=== PATIENT | male | born 1950 | race Caucasian/White ===

== ENCOUNTER 2017-01-22 20:11 | Emergency (ER) | payer MEDICARE ==
[~2017-01-22 20:11] MED LIST: COUMADIN1 MG PO; MULTIPLE VITAMIN PO; TOPROL XL50 MG PO
--- NOTE | 2017-01-22 21:28 | DIAGNOSTIC IMAGING REPORT ---
PROCEDURE: XR CHEST 1 VIEW INDICATION: SHORTNESS OF BREATH TECHNIQUE: Portable AP view (2049 hours). COMPARISON: Compared to chest x-ray on 07/23/2016. FINDINGS: Allowing for overlying wires and electrodes, lungs are clear. Status post median sternotomy and aortic valve prosthesis. Heart and mediastinum are normal size. Thorax is unchanged. IMPRESSION: 1. Status post aortic valve prosthesis. 2. Otherwise negative chest.
--- NOTE | 2017-01-22 22:00 | ED NURSING NOTES ---
Clinical Report - Nurses [facility] [address] [place] [address] 01/22/2017 20:12 Patient: TRA MCGRAW TRIAGE Triage time 20:32. Acuity: LEVEL 2. Chief Complaint: (palpitations). Alert. ERIC COMA SCORE: Eric Coma Scale: 15- eyes open spontaneously (4); best verbal response- oriented x 4 (5); best motor response- obeys commands (6). --20:38 Scout Miranda R.N. 20:32 01/22/17. BP: 115/88 taken while sitting. HR: 135. RR: 20. O2 saturation: 94% on room air. Temp: 97.5 F. Pain level now: 0/10. --20:38 Scout Miranda R.N. Weight: 89.3 kg. Height/Length: 70 inches Per Patient. BMI: 28.2. --20:32 Scout Miranda R.N. Medications Coumadin Oral 8 mg, daily. Multivitamins Oral 1 pill, daily. --20:34 Scout Miranda R.N. Metoprolol Tartrate Oral 25 mg ( ER). Prevastatin. --20:34 Scout Miranda R.N. The following entry was struck and corrected by Scout Miranda R.N., 20:40 (01/22/17) Reason for correction - other(correction). <<STRICKEN ENTRY-- Metoprolol Tartrate Oral. --20:34 Scout Miranda R.N. --END STRIKE>>. Allergies Dilaudid- . --20:34 Scout Miranda R.N. History Arrived by private vehicle. Historian: patient. Accompanied by family. 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 ( patient states having similar episodes in the past). SOCIAL HX: Heavy tobacco smoker (cigarette)- 1 pack per day. Occasional alcohol use; consumes beer weekly. No drug use. FALL RISK ASSESSMENT: Fall risk assessment completed. No fall risk identified. NUTRITIONAL RISK ASSESSMENT: The nutritional risk assessment revealed no deficiencies. FUNCTIONAL ASSESSMENT: Functional assessment: no impairments noted. LEARNING NEEDS ASSESSMENT: The learning needs assessment revealed no barriers. --20:38 Scout Miranda R.N. PROBLEMS: Chest Pain. Atrial Fibrillation. Raynaud's Phenomenon. Changed Mental Status. CVA - Cerebrovascular Accident. Hypertension. --20:34 Scout Miranda R.N. ADDITIONAL SURGERIES: Hernia Repair. Umbilical Hernia Repair. Valve Replacement. --20:35 Scout Miranda R.N. Interventions ID band on patient. To treatment room. --20:38 Scout Miranda R.N. PHYSICAL ASSESSMENT Ambulatory to room. GENERAL / NEURO / PSYCH: Alert. Oriented X 4. Appears anxious. Does not appear in pain. HEENT: No facial asymmetry noted. Mucous membranes are pink. RESPIRATORY: Breath sounds within normal limits. CVS: Cardiac rhythm: atrial fibrillation. Capillary refill less than 2 seconds. SKIN: Skin intact. Skin is warm and dry. --20:39 Scout Miranda R.N. ( Patient's rate dropped from above 120 bpm to below 100bpm during Diltiazem administration. Dr. Laurent notified.). --21:02 Scout Miranda R.N. NURSING PROGRESS NOTES cardiac monitor technician, pulse oximeter and NIBP monitor placed on patient. Patient gowned. Head of bed elevated. Two patient identifiers checked. Call light placed in reach. Side rails up x 1. Bed placed in lowest position. Brakes of bed on. Patient ready for evaluation- chart flagged. Patient waiting for evaluation. ( Dr. laurent at bedside). --20:39 Scout Miranda R.N. EKG time: (2045 PM). EKG was ordered, performed by a tech and shown to the ED physician. --20:50 Yareli Samano 20:45 01/22/2017 Site #1 started via IV in the right antecubital space with an 18g angiocath, with aseptic technique and good blood return; one attempt. Blood drawn: rainbow set. Labeled in the presence of the patient and sent to the lab. Saline lock flushed with 10 mL saline (started by TAMARA Franco). --21:00 Scout Miranda R.N. 20:50 01/22/2017 Started bag #1 1000 mL IV Fluids IV NS (Saline); at 1000 mL/hr over 1 hour(s) via site #1. Allergies verified and confirmed 5 rights. IV patency established. IV site checked: no pain, redness, or swelling. IV flushed thoroughly pre- and post-medication administration. Completed per protocol. --21:00 Scout Miranda R.N. 20:54 01/22/2017 Diltiazem IVP 25 mg given over 5 minute(s) via site #1. Allergies verified and confirmed 5 rights. IV patency established. IV site checked: no pain, redness, or swelling. IV flushed thoroughly pre- and post-medication administration. IVP given by RN. --21:01 Scout Miranda R.N. <<STRICKEN ENTRY-- ( Note: Patient's belongings have been stored in ER locker #1.`). --21:14 Scout Miranda R.N. --END STRIKE>> Charted On Wrong Patient --21:14 Scout Miranda R.N. ( Patient attempting to provide urine sample). --21:22 Scout Miranda R.N. EKG time: (2130). EKG was performed by a tech and shown to the ED physician. ( 2nd EKG). --21:34 Yareli Samano 21:50 01/22/2017 IV Fluids IV NS Discontinued: bag #1 completed. Total amount infused: 1000 mL. IV patency established. IV site checked: no pain, redness, or swelling. IV flushed thoroughly. --22:12 Scout Miranda R.N. DISPOSITION / DISCHARGE 22:11 01/22/2017 Site #1 removed upon discharge. Manual pressure and bandage applied. --22:11 Scout Miranda R.N. Departure time: 22:12. Condition at departure: stable. No learning barriers present. Discharge instructions provided and reviewed with the patient. Reviewed warnings. Treatments reviewed. Reviewed referrals for followup. Patient and spouse verbalized understanding. Written instructions provided in [place]. The patient was discharged home and accompanied by spouse. He left the Emergency Department ambulatory and via private vehicle. Spouse driving. --22:12 Scout Miranda R.N. 22:11 01/22/17. Pain level now 0/10. --22:12 Scout Miranda R.N. 22:01 01/22/17. BP: 117/66. HR: 77 (irregular and normal rate). RR: 20 (regular and unlabored). O2 saturation: 95% on nasal cannula at 2 liters/minute. Pain level now: 0/10. Additional comments: a-fib. --22:12 Scout Miranda R.N. Locked/Released at 01/22/2017 22:13 by Scout Miranda R.N.
--- NOTE | 2017-01-22 22:00 | ED CLINICAL REPORT ---
Clinical Report - Physicians/Mid Levels [facility] [address] [place] [address] 01/22/2017 20:12 Patient: TRA MCGRAW Time Seen: 20:37; initial patient contact. Arrived- By private vehicle. Historian- patient. HISTORY OF PRESENT ILLNESS Chief Complaint: PALPITATIONS. It is described as a fast and pounding heart beat. He complains of dizziness. This started today at about 7:30 PM and is still present. No history of caffeine use prior to onset, decongestants use prior to onset, cocaine use prior to onset or amphetamine use prior to onset. It was abrupt in onset. No chest pain or discomfort, difficulty breathing, sweating episodes or fainting episodes. 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 (he took a double dose of his metoprolol). Similar symptoms previously: Once. REVIEW OF SYSTEMS No chills, fever, sweats, calf pain or chest pain. No cough, difficulty breathing, pedal edema, abdominal pain or black stools. No bloody stools, constipation, diarrhea, nausea or vomiting. No urinary problems. All systems otherwise negative, except as recorded above. PAST HISTORY PCP - [facility] - [facility] [place]. Problems: Chest Pain. Atrial Fibrillation. Raynaud's Phenomenon. Changed Mental Status. CVA - Cerebrovascular Accident. Hypertension. Additional Surgeries: Hernia Repair. Umbilical Hernia Repair. Valve Replacement. Medications: Pravastatin Sodium Oral. Metoprolol Tartrate Oral 25 mg ( ER). Coumadin Oral 8 mg, daily. Multivitamins Oral 1 pill, daily. Allergies: Dilaudid- . SOCIAL HISTORY Current every day heavy tobacco smoker (cigarette)- 1 pack per day. Occasional alcohol use. No drug use. Is a local resident. FAMILY HISTORY Denies family medical history. ADDITIONAL NOTES The nursing notes have been reviewed. PHYSICAL EXAM Vital Signs: 01/22/2017 20:32 BP: 115/88. HR: 135. RR: 20. O2 saturation: 94%. Temp: 97.5 F. Pain level now: 0/10. Have been reviewed. Appearance: Alert. No acute distress. Eyes: Pupils equal, round and reactive to light. Eyes normal inspection. ENT: Pharynx normal. Neck: Normal inspection. Neck supple. No JVD. CVS: Abnormal rhythm, which is irregularly irregular. Respiratory: No respiratory distress. Decreased air movement. Abdomen: Soft and nontender. Bowel sounds normal. No organomegaly. No mass. Back: Normal external inspection. No CVA tenderness. Skin: Skin warm and dry. Normal skin color. Normal skin turgor. Extremities: Extremities exhibit normal ROM. No calf tenderness. No lower extremity edema. LABS, X-RAYS, AND EKG EKG: Rate: 123. Atrial fibrillation. Left anterior fascicular block. RBBB. EKG unchanged when compared with prior EKG. (23 Jul 2016). EKG #2: Rate: 77. Left anterior fascicular block. RBBB. The study has been independently viewed by me. Chest X-ray: (S/P aortic valve prosthesis). The X-rays were interpreted contemporaneously by me and discussed with the radiologist. Laboratory Tests: UA-Culture if indicated: (DINORAH: 01/22/2017 21:31) ( [facility] 01/22/2017 21:49) Final results Test Result Flag Units (Reference) URINE COLOR LIGHT YELLOW URINE APPEARANCE CLEAR URINE GLUCOSE NEGATIVE (NEGATIVE) URINE BILIRUBIN NEGATIVE (NEGATIVE) URINE KETONE NEGATIVE (NEGATIVE) URINE SPECIFIC GRAVITY <= 1.005 L (1.010-1.030) URINE PH 6.0 (5.0-8.0) URINE PROTEIN NEGATIVE (NEGATIVE) URINE UROBILINOGEN 0.2 EU/dL (0.2-1.0) URINE NITRITE NEGATIVE (NEGATIVE) URINE BLOOD TRACE-LYSED (NEGATIVE) URINE LEUK ESTERASE NEGATIVE (NEGATIVE) URINE RBC NONE SEEN rbc/hpf (0-1) URINE WBC RARE wbc/hpf (0-1) URINE EPITHELIAL CELLS RARE EPI/hpf (0-5) URINE BACTERIA NONE SEEN (NONE SEEN) URINE COMMENT CULT NOT INDICATED URINE CULTURES ARE SET-UP BASED ON THE FOLLOWING CRITERIA:POSITIVE NITRITEPOSITIVE LEUKOCYTE ESTERASEGREATER THAN 10 WHITE BLOOD CELLSMODERATE (2+) OR GREATER BACTERIA CBC w Diff: (DINORAH: 01/22/2017 20:35) ( [facility] 01/22/2017 20:53) Final results Test Result Flag Units (Reference) WHITE BLOOD COUNT 10.6 K/uL (4.5-11.5) RED BLOOD COUNT 5.24 M/uL (4.50-5.90) HEMOGLOBIN 16.9 gm/dL (13.5-17.5) HEMATOCRIT 49.7 % (41.0-53.0) MEAN CELL VOLUME 95 fL (80-100) MEAN CORPUSCULAR HGB 32 pg (26-34) MEAN CORPUSCULAR HGB CONC 34 g/dL (31-37) RED CELL DISTRIBUTION WIDTH 13.9 % (11.6-14.8) PLATELET COUNT 229 K/uL (150-400) NEUTROPHIL % 67.1 % (50-75) LYMPH % 23.1 L % (25-40) MONO % 6.8 % (3-14) EOSINOPHIL % 1.9 % (0-4) BASOPHIL % 1.1 % (0-2) PT with INR: (DINORAH: 01/22/2017 20:35) ( [facility] 01/22/2017 21:38) Final results Test Result Flag Units (Reference) INR 1.9 H (0.8-1.2) Low Intensity Therapy: INR 1.5-2.0 PT range 18.5-23.1Mod.Intensity Therapy: INR 2.0-3.0 PT range 23.1-31.5High Intensity Therapy: INR 2.5-3.5 PT range 27.4-35.5High Intensity Therapy 2: INR 3.0-4.0 PT range 31.5-39.3 APTT 38 H SECONDS (24-34) [id number]: (DINORAH: 01/22/2017 20:35) ( [facility] 01/22/2017 21:06) Final results Test Result Flag Units (Reference) D-DIMER QUANTITATIVE 0.48 ug/mLFEU (0.27-0.52) The primary value of this quantitative assay relates toits negative predictive value (i.e. exclusion) of pulmonaryembolism/deep vein thrombosis/DIC.Elevated levels of d-dimer may also occur with:, age, cancer, inflammation, liver disease,post-op, infection, hematoma, coronary disease, peripheralarteriopathy, bleeding disorders and thrombolytic treatment.Results should be correlated with other clinical andradiological data.Testing Methodology: Latex Immunoassay Urine Drug Screen: (DINORAH: 01/22/2017 21:31) ( [facility] 01/22/2017 21:54) Final results Test Result Flag Units (Reference) AMPHETAMINE/METHAMPHETAMINE NEGATIVE (NEGATIVE) BARBITURATE NEGATIVE (NEGATIVE) BENZODIAZEPINE NEGATIVE (NEGATIVE) CANNABINOID NEGATIVE (NEGATIVE) COCAINE NEGATIVE (NEGATIVE) ECSTASY NEGATIVE (NEGATIVE) METHADONE NEGATIVE (NEGATIVE) OPIATE NEGATIVE (NEGATIVE) The urine drug screen is a qualitative screening test fordrug overdose and abuse. All screen results should beconsidered as presumptive.Drugs screened for are as follows:BenzodiazepinesCocaineAmphetamines/MetamphetaminesTHC (Tetrahydrocannabinol)OpiatesBarbituratesEcstasyMethadonePositive results are unconfirmed. For confirmation, notifythe lab for the specimen to be sent to the reference lab.All confirmations must be performed by a differentmethodology.The ingestion of natural herbal and plant productscontaining Ephedra/Ephedra metabolites can produce in urineone or more substances capable of cross reacting withamphetamine/methamphetamine immunoassays. These testsprovide a preliminary result only. A more specificalternative chemical method must be used to obtain aconfirmed analytical result. BNP: (DINORAH: 01/22/2017 20:35) ( [facility] 01/22/2017 21:20) Final results Test Result Flag Units (Reference) B-TYPE NATRIURETIC PEPTIDE 119 H pg/ml (5-100) CHEM 13 PANEL: (DINORAH: 01/22/2017 20:35) ( [facility] 01/22/2017 21:17) Final results Test Result Flag Units (Reference) GLUCOSE 114 H mg/dL (70-110) BUN 12 mg/dL (7-18) CREATININE 1.0 mg/dL (0.6-1.3) Estimated GFR >60 mL/min Estimated GFR- >60 mL/min Note: Persistent reduction over 3 months in eGFR<60 mL/min/1.73 m2 defines CKD. Patients with eGFR values>=60 mL/min/1.73 m2 may also have CKD if evidence ofpersistent proteinuria. Additional information may be foundat www.kidney.org. SODIUM 139 mmol/L (136-145) POTASSIUM 3.6 mmol/L (3.5-5.1) CHLORIDE 103 mmol/L (98-107) CARBON DIOXIDE 29 mmol/L (21-32) CALCIUM 9.2 mg/dL (8.5-10.1) TOTAL PROTEIN 8.2 g/dL (6.4-8.2) ALBUMIN 3.9 g/dL (3.3-5.0) BILIRUBIN, TOTAL 0.5 mg/dL (0.0-1.0) ALKALINE PHOSPHATASE 60 U/L (46-116) AST (SGOT) 26 U/L (15-37) ALT (SGPT) 34 U/L (12-78) CPK 166 U/L (24-260) MAGNESIUM 2.3 mg/dL (1.8-2.4) TROPONIN I <0.05 L ng/mL (0.00-1.5) TROPONIN REFERENCE RANGE:<0.1 NEGATIVE0.1-1.5 INDETERMINANT>1.5 POSITIVE . PROGRESS AND PROCEDURES Course of Care: Symptoms better. Vital signs have been reviewed. Physical exam findings are improved. Alert. No acute distress. Decreased breath sounds. No respiratory distress. Abnormal cardiac rhythm, which is irregularly irregular. Abdomen soft and nontender. Skin warm and dry. Not tachycardic. Patient/family counseled. Old medical records reviewed. Disposition: Discharged. CLINICAL IMPRESSION Chronic atrial fibrillation. INSTRUCTIONS Avoid stimulants (such as cigarettes, coffee, cold medicines, sinus medicines, street drugs). Warnings: Further evaluation is necessary. GENERAL WARNINGS: Return or contact your physician immediately if your condition worsens or changes unexpectedly, if not improving as expected, or if other problems arise. Your Current Medications: CONTINUE TAKING THE FOLLOWING MEDICATIONS: Coumadin Oral : 8 mg daily. Metoprolol Tartrate Oral : 25 mg, ER. Multivitamins Oral : 1 pill daily. Pravastatin Sodium Oral. Follow-up: Follow up with a excel specialist Dr. Andrews. Call for the next available appointment. Understanding of the discharge instructions verbalized by patient and family. (Electronically signed by Rm Helms MD 01/23/2017 8:05)
--- NOTE | 2017-01-22 22:00 | ED CLINICAL REPORT ---
Clinical Report - Physicians/Mid Levels [facility] [address] [place] [address] 01/22/2017 20:12 Patient: TRA MCGRAW Time Seen: 20:37; initial patient contact. Arrived- By private vehicle. Historian- patient. HISTORY OF PRESENT ILLNESS Chief Complaint: PALPITATIONS. It is described as a fast and pounding heart beat. He complains of dizziness. This started today at about 7:30 PM and is still present. No history of caffeine use prior to onset, decongestants use prior to onset, cocaine use prior to onset or amphetamine use prior to onset. It was abrupt in onset. No chest pain or discomfort, difficulty breathing, sweating episodes or fainting episodes. Treatment [employer]: Pre-hospital treatment by patient. (he took a double dose of his metoprolol). Similar symptoms previously: Once. REVIEW OF SYSTEMS No chills, fever, sweats, calf pain or chest pain. No cough, difficulty breathing, pedal edema, abdominal pain or black stools. No bloody stools, constipation, diarrhea, nausea or vomiting. No urinary problems. All systems otherwise negative, except as recorded above. PAST HISTORY PCP - [facility] Rash[facility] Cardiology - [facility] Juliana. Problems: Chest Pain. Atrial Fibrillation. Raynaud's Phenomenon. Changed Mental Status. CVA - Cerebrovascular Accident. Hypertension. Additional Surgeries: Hernia Repair. Umbilical Hernia Repair. Valve Replacement. Medications: Pravastatin Sodium Oral. Metoprolol Tartrate Oral 25 mg ( ER). Coumadin Oral 8 mg, daily. Multivitamins Oral 1 pill, daily. Allergies: Dilaudid- . SOCIAL HISTORY Current every day heavy tobacco smoker (cigarette)- 1 pack per day. Occasional alcohol use. No drug use. Is a local resident. FAMILY HISTORY Denies family medical history. ADDITIONAL NOTES The nursing notes have been reviewed. PHYSICAL EXAM Vital Signs: 01/22/2017 20:32 BP: 115/88. HR: 135. RR: 20. O2 saturation: 94%. Temp: 97.5 F. Pain level now: 0/10. Have been reviewed. Appearance: Alert. No acute distress. Eyes: Pupils equal, round and reactive to light. Eyes normal inspection. ENT: Pharynx normal. Neck: Normal inspection. Neck supple. No JVD. CVS: Abnormal rhythm, which is irregularly irregular. Respiratory: No respiratory distress. Decreased air movement. Abdomen: Soft and nontender. Bowel sounds normal. No organomegaly. No mass. Back: Normal external inspection. No CVA tenderness. Skin: Skin warm and dry. Normal skin color. Normal skin turgor. Extremities: Extremities exhibit normal ROM. No calf tenderness. No lower extremity edema. LABS, X-RAYS, AND EKG EKG: Rate: 123. Atrial fibrillation. Left anterior fascicular block. RBBB. EKG unchanged when compared with prior EKG. (23 Jul 2016). EKG #2: Rate: 77. Left anterior fascicular block. RBBB. The study has been independently viewed by me. Chest X-ray: (S/P aortic valve prosthesis). The X-rays were interpreted contemporaneously by me and discussed with the radiologist. Laboratory Tests: UA-Culture if indicated: (DINORAH: 01/22/2017 21:31) ( [facility] 01/22/2017 21:49) Final results Test Result Flag Units (Reference) URINE COLOR LIGHT YELLOW URINE APPEARANCE CLEAR URINE GLUCOSE NEGATIVE (NEGATIVE) URINE BILIRUBIN NEGATIVE (NEGATIVE) URINE KETONE NEGATIVE (NEGATIVE) URINE SPECIFIC GRAVITY <= 1.005 L (1.010-1.030) URINE PH 6.0 (5.0-8.0) URINE PROTEIN NEGATIVE (NEGATIVE) URINE UROBILINOGEN 0.2 EU/dL (0.2-1.0) URINE NITRITE NEGATIVE (NEGATIVE) URINE BLOOD TRACE-LYSED (NEGATIVE) URINE LEUK ESTERASE NEGATIVE (NEGATIVE) URINE RBC NONE SEEN rbc/hpf (0-1) URINE WBC RARE wbc/hpf (0-1) URINE EPITHELIAL CELLS RARE EPI/hpf (0-5) URINE BACTERIA NONE SEEN (NONE SEEN) URINE COMMENT CULT NOT INDICATED URINE CULTURES ARE SET-UP BASED ON THE FOLLOWING CRITERIA:POSITIVE NITRITEPOSITIVE LEUKOCYTE ESTERASEGREATER THAN 10 WHITE BLOOD CELLSMODERATE (2+) OR GREATER BACTERIA CBC w Diff: (DINORAH: 01/22/2017 20:35) ( [facility] 01/22/2017 20:53) Final results Test Result Flag Units (Reference) WHITE BLOOD COUNT 10.6 K/uL (4.5-11.5) RED BLOOD COUNT 5.24 M/uL (4.50-5.90) HEMOGLOBIN 16.9 gm/dL (13.5-17.5) HEMATOCRIT 49.7 % (41.0-53.0) MEAN CELL VOLUME 95 fL (80-100) MEAN CORPUSCULAR HGB 32 pg (26-34) MEAN CORPUSCULAR HGB CONC 34 g/dL (31-37) RED CELL DISTRIBUTION WIDTH 13.9 % (11.6-14.8) PLATELET COUNT 229 K/uL (150-400) NEUTROPHIL % 67.1 % (50-75) LYMPH % 23.1 L % (25-40) MONO % 6.8 % (3-14) EOSINOPHIL % 1.9 % (0-4) BASOPHIL % 1.1 % (0-2) PT with INR: (DINORAH: 01/22/2017 20:35) ( [facility] 01/22/2017 21:38) Final results Test Result Flag Units (Reference) INR 1.9 H (0.8-1.2) Low Intensity Therapy: INR 1.5-2.0 PT range 18.5-23.1Mod.Intensity Therapy: INR 2.0-3.0 PT range 23.1-31.5High Intensity Therapy: INR 2.5-3.5 PT range 27.4-35.5High Intensity Therapy 2: INR 3.0-4.0 PT range 31.5-39.3 APTT 38 H SECONDS (24-34) [id number]: (DINORAH: 01/22/2017 20:35) ( [facility] 01/22/2017 21:06) Final results Test Result Flag Units (Reference) D-DIMER QUANTITATIVE 0.48 ug/mLFEU (0.27-0.52) The primary value of this quantitative assay relates toits negative predictive value (i.e. exclusion) of pulmonaryembolism/deep vein thrombosis/DIC.Elevated levels of d-dimer may also occur with:, age, cancer, inflammation, liver disease,post-op, infection, hematoma, coronary disease, peripheralarteriopathy, bleeding disorders and thrombolytic treatment.Results should be correlated with other clinical andradiological data.Testing Methodology: Latex Immunoassay Urine Drug Screen: (DINORAH: 01/22/2017 21:31) ( [facility] 01/22/2017 21:54) Final results Test Result Flag Units (Reference) AMPHETAMINE/METHAMPHETAMINE NEGATIVE (NEGATIVE) BARBITURATE NEGATIVE (NEGATIVE) BENZODIAZEPINE NEGATIVE (NEGATIVE) CANNABINOID NEGATIVE (NEGATIVE) COCAINE NEGATIVE (NEGATIVE) ECSTASY NEGATIVE (NEGATIVE) METHADONE NEGATIVE (NEGATIVE) OPIATE NEGATIVE (NEGATIVE) The urine drug screen is a qualitative screening test fordrug overdose and abuse. All screen results should beconsidered as presumptive.Drugs screened for are as follows:BenzodiazepinesCocaineAmphetamines/MetamphetaminesTHC (Tetrahydrocannabinol)OpiatesBarbituratesEcstasyMethadonePositive results are unconfirmed. For confirmation, notifythe lab for the specimen to be sent to the reference lab.All confirmations must be performed by a differentmethodology.The ingestion of natural herbal and plant productscontaining Ephedra/Ephedra metabolites can produce in urineone or more substances capable of cross reacting withamphetamine/methamphetamine immunoassays. These testsprovide a preliminary result only. A more specificalternative chemical method must be used to obtain aconfirmed analytical result. BNP: (DINORAH: 01/22/2017 20:35) ( [facility] 01/22/2017 21:20) Final results Test Result Flag Units (Reference) B-TYPE NATRIURETIC PEPTIDE 119 H pg/ml (5-100) CHEM 13 PANEL: (DINORAH: 01/22/2017 20:35) ( [facility] 01/22/2017 21:17) Final results Test Result Flag Units (Reference) GLUCOSE 114 H mg/dL (70-110) BUN 12 mg/dL (7-18) CREATININE 1.0 mg/dL (0.6-1.3) Estimated GFR >60 mL/min Estimated GFR- >60 mL/min Note: Persistent reduction over 3 months in eGFR<60 mL/min/1.73 m2 defines CKD. Patients with eGFR values>=60 mL/min/1.73 m2 may also have CKD if evidence ofpersistent proteinuria. Additional information may be foundat www.kidney.org. SODIUM 139 mmol/L (136-145) POTASSIUM 3.6 mmol/L (3.5-5.1) CHLORIDE 103 mmol/L (98-107) CARBON DIOXIDE 29 mmol/L (21-32) CALCIUM 9.2 mg/dL (8.5-10.1) TOTAL PROTEIN 8.2 g/dL (6.4-8.2) ALBUMIN 3.9 g/dL (3.3-5.0) BILIRUBIN, TOTAL 0.5 mg/dL (0.0-1.0) ALKALINE PHOSPHATASE 60 U/L (46-116) AST (SGOT) 26 U/L (15-37) ALT (SGPT) 34 U/L (12-78) CPK 166 U/L (24-260) MAGNESIUM 2.3 mg/dL (1.8-2.4) TROPONIN I <0.05 L ng/mL (0.00-1.5) TROPONIN REFERENCE RANGE:<0.1 NEGATIVE0.1-1.5 INDETERMINANT>1.5 POSITIVE . PROGRESS AND PROCEDURES Course of Care: Symptoms better. Vital signs have been reviewed. Physical exam findings are improved. Alert. No acute distress. Decreased breath sounds. No respiratory distress. Abnormal cardiac rhythm, which is irregularly irregular. Abdomen soft and nontender. Skin warm and dry. Not tachycardic. Patient/family counseled. Old medical records reviewed. Disposition: Discharged. CLINICAL IMPRESSION Chronic atrial fibrillation. INSTRUCTIONS Avoid stimulants (such as cigarettes, coffee, cold medicines, sinus medicines, street drugs). Warnings: Further evaluation is necessary. GENERAL WARNINGS: Return or contact your physician immediately if your condition worsens or changes unexpectedly, if not improving as expected, or if other problems arise. Your Current Medications: CONTINUE TAKING THE FOLLOWING MEDICATIONS: Coumadin Oral : 8 mg daily. Metoprolol Tartrate Oral : 25 mg, ER. Multivitamins Oral : 1 pill daily. Pravastatin Sodium Oral. Follow-up: Follow up with a supervisor glycerin Dr. Andrews. Call for the next available appointment. Understanding of the discharge instructions verbalized by patient and family. (Electronically signed by Rm Helms MD 01/23/2017 8:05)
--- NOTE | 2017-01-22 22:00 | ED ORDER SUMMARY ---
..... Patient: TRA MCGRAW OrderSheet [facility] VisitID: [id number] [place] [address] 66y, M Registration Date/Time: 01/22/2017 ORDER SHEET Weight: 89.3 kg Allergies: Dilaudid- GENERAL ORDERS: Chest 1V Urgent (20:41 01/22/2017 Gilberto Garcia) (20:44 DDavis R.N.) Cardiac Panel Stat (20:43 01/22/2017 Gilberto Garcia) (20:44 DDavis R.N.) BNP Urgent (20:43 01/22/2017 Gilberto Garcia) (20:44 DDavis R.N.) D-Dimer Urgent (20:43 01/22/2017 Gilberto Garcia) (20:44 DDavis R.N.) UA-Culture if indicated Urgent (20:01/22/2017 Gilberto Garcia) (Ack 20:47 [facility]) (21:30 DDavis R.N.) Urine Drug Screen Urgent (20:43 01/22/2017 Gilberto Garcia) (Ack 20:47 [facility]) (21:30 DDavis R.N.) PT with INR Urgent (21:27 01/22/2017 Sherry SABILLON) (21:30 DDavis R.N.) PTT Urgent (21:27 01/22/2017 Sherry SABILLON) (21:30 DDavis R.N.) MEDICATION ORDERS: IV FLUIDS: IV NS : initial bolus none -, then 1000 mL/hr for X1 (NOW) (20:41 01/22/2017 Gilberto Garcia) (Ack 20:44 DDavis R.N.) (21:00 DDavis R.N.) Diltiazem IV 25 mg (HIGH ALERT MEDICATION, NOW) (20:43 01/22/2017 Gilberto Garcia) (Ack 20:44 DDavis R.N.) (21:01 DDavis R.N.) ORDER SHEET NOTES: [Electronically signed by Scout Miranda R.N. (22:13 01/22/2017)] [Electronically signed by Rm Helms MD (08:05 01/23/2017)] [Electronically locked/signed by Scout Miranda R.N. (22:13 01/22/2017)]
--- NOTE | 2017-01-22 22:00 | ED NURSING NOTES ---
Clinical Report - Nurses [facility] [address] [place] [address] 01/22/2017 20:12 Patient: TRA MCGRAW TRIAGE Triage time 20:32. Acuity: LEVEL 2. Chief Complaint: (palpitations). Alert. ERIC COMA SCORE: Eric Coma Scale: 15- eyes open spontaneously (4); best verbal response- oriented x 4 (5); best motor response- obeys commands (6). --20:38 Scout Miranda R.N. 20:32 01/22/17. BP: 115/88 taken while sitting. HR: 135. RR: 20. O2 saturation: 94% on room air. Temp: 97.5 F. Pain level now: 0/10. --20:38 Scout Miranda R.N. Weight: 89.3 kg. Height/Length: 70 inches Per Patient. BMI: 28.2. --20:32 Scout Miranda R.N. Medications Coumadin Oral 8 mg, daily. Multivitamins Oral 1 pill, daily. --20:34 Scout Miranda R.N. Metoprolol Tartrate Oral 25 mg ( ER). Prevastatin. --20:34 Scout Miranda R.N. The following entry was struck and corrected by Scout Miranda R.N., 20:40 (01/22/17) Reason for correction - other(correction). <<STRICKEN ENTRY-- Metoprolol Tartrate Oral. --20:34 Scout Miranda R.N. --END STRIKE>>. Allergies Dilaudid- . --20:34 Scout Miranda R.N. History Arrived by private vehicle. Historian: patient. Accompanied by family. 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 ( patient states having similar episodes in the past). SOCIAL HX: Heavy tobacco smoker (cigarette)- 1 pack per day. Occasional alcohol use; consumes beer weekly. No drug use. FALL RISK ASSESSMENT: Fall risk assessment completed. No fall risk identified. NUTRITIONAL RISK ASSESSMENT: The nutritional risk assessment revealed no deficiencies. FUNCTIONAL ASSESSMENT: Functional assessment: no impairments noted. LEARNING NEEDS ASSESSMENT: The learning needs assessment revealed no barriers. --20:38 Scout Miranda R.N. PROBLEMS: Chest Pain. Atrial Fibrillation. Raynaud's Phenomenon. Changed Mental Status. CVA - Cerebrovascular Accident. Hypertension. --20:34 Scout Miranda R.N. ADDITIONAL SURGERIES: Hernia Repair. Umbilical Hernia Repair. Valve Replacement. --20:35 Scout Miranda R.N. Interventions ID band on patient. To treatment room. --20:38 Scout Miranda R.N. PHYSICAL ASSESSMENT Ambulatory to room. GENERAL / NEURO / PSYCH: Alert. Oriented X 4. Appears anxious. Does not appear in pain. HEENT: No facial asymmetry noted. Mucous membranes are pink. RESPIRATORY: Breath sounds within normal limits. CVS: Cardiac rhythm: atrial fibrillation. Capillary refill less than 2 seconds. SKIN: Skin intact. Skin is warm and dry. --20:39 Scout Miranda R.N. ( Patient's rate dropped from above 120 bpm to below 100bpm during Diltiazem administration. Dr. Laurent notified.). --21:02 Scout Miranda R.N. NURSING PROGRESS NOTES security monitor, pulse oximeter and NIBP monitor placed on patient. Patient gowned. Head of bed elevated. Two patient identifiers checked. Call light placed in reach. Side rails up x 1. Bed placed in lowest position. Brakes of bed on. Patient ready for evaluation- chart flagged. Patient waiting for evaluation. ( Dr. laurent at bedside). --20:39 Scout Miranda R.N. EKG time: (2045 PM). EKG was ordered, performed by a tech and shown to the ED physician. --20:50 Yareli Samano 20:45 01/22/2017 Site #1 started via IV in the right antecubital space with an 18g angiocath, with aseptic technique and good blood return; one attempt. Blood drawn: rainbow set. Labeled in the presence of the patient and sent to the lab. Saline lock flushed with 10 mL saline (started by TAMARA Franco). --21:00 Scout Miranda R.N. 20:50 01/22/2017 Started bag #1 1000 mL IV Fluids IV NS (Saline); at 1000 mL/hr over 1 hour(s) via site #1. Allergies verified and confirmed 5 rights. IV patency established. IV site checked: no pain, redness, or swelling. IV flushed thoroughly pre- and post-medication administration. Completed per protocol. --21:00 Scout Miranda R.N. 20:54 01/22/2017 Diltiazem IVP 25 mg given over 5 minute(s) via site #1. Allergies verified and confirmed 5 rights. IV patency established. IV site checked: no pain, redness, or swelling. IV flushed thoroughly pre- and post-medication administration. IVP given by RN. --21:01 Scout Miranda R.N. <<STRICKEN ENTRY-- ( Note: Patient's belongings have been stored in ER locker #1.`). --21:14 Scout Miranda R.N. --END STRIKE>> Charted On Wrong Patient --21:14 Scout Miranda R.N. ( Patient attempting to provide urine sample). --21:22 Scout Miranda R.N. EKG time: (2130). EKG was performed by a tech and shown to the ED physician. ( 2nd EKG). --21:34 Yareli Samano 21:50 01/22/2017 IV Fluids IV NS Discontinued: bag #1 completed. Total amount infused: 1000 mL. IV patency established. IV site checked: no pain, redness, or swelling. IV flushed thoroughly. --22:12 Scout Miranda R.N. DISPOSITION / DISCHARGE 22:11 01/22/2017 Site #1 removed upon discharge. Manual pressure and bandage applied. --22:11 Scout Miranda R.N. Departure time: 22:12. Condition at departure: stable. No learning barriers present. Discharge instructions provided and reviewed with the patient. Reviewed warnings. Treatments reviewed. Reviewed referrals for followup. Patient and spouse verbalized understanding. Written instructions provided in Dominican. The patient was discharged home and accompanied by spouse. He left the Emergency Department ambulatory and via private vehicle. Spouse driving. --22:12 Scout Miranda R.N. 22:11 01/22/17. Pain level now 0/10. --22:12 Scout Miranda R.N. 22:01 01/22/17. BP: 117/66. HR: 77 (irregular and normal rate). RR: 20 (regular and unlabored). O2 saturation: 95% on nasal cannula at 2 liters/minute. Pain level now: 0/10. Additional comments: a-fib. --22:12 Scout Miranda R.N. Locked/Released at 01/22/2017 22:13 by Scout Miranda R.N.
--- NOTE | 2017-01-22 22:00 | ED ORDER SUMMARY ---
..... Patient: TRA MCGRAW OrderSheet [facility] VisitID: [id number] [place] [address] 66y, M Registration Date/Time: 01/22/2017 ORDER SHEET Weight: 89.3 kg Allergies: Dilaudid- GENERAL ORDERS: Chest 1V Urgent (20:41 01/22/2017 Gilberto Garcia) (20:44 DDavis R.N.) Cardiac Panel Stat (20:43 01/22/2017 Gilberto Garcia) (20:44 DDavis R.N.) BNP Urgent (20:43 01/22/2017 Gilberto Garcia) (20:44 DDavis R.N.) D-Dimer Urgent (20:43 01/22/2017 Gilberto Garcia) (20:44 DDavis R.N.) UA-Culture if indicated Urgent (20:01/22/2017 Gilberto Garcia) (Ack 20:47 [facility] [employer] [employer]) (21:30 DDavis R.N.) Urine Drug Screen Urgent (20:43 01/22/2017 Gilberto Garcia) (Ack 20:47 [facility] [employer]) (21:30 DDavis R.N.) PT with INR Urgent (21:27 01/22/2017 Sherry SABILLON) (21:30 DDavis R.N.) PTT Urgent (21:27 01/22/2017 Sherry SABILLON) (21:30 DDavis R.N.) MEDICATION ORDERS: IV FLUIDS: IV NS : initial bolus none -, then 1000 mL/hr for X1 (NOW) (20:41 01/22/2017 Gilberto Garcia) (Ack 20:44 DDavis R.N.) (21:00 DDavis R.N.) Diltiazem IV 25 mg (HIGH ALERT MEDICATION, NOW) (20:43 01/22/2017 Gilberto Garcia) (Ack 20:44 DDavis R.N.) (21:01 DDavis R.N.) ORDER SHEET NOTES: [Electronically signed by Scout Miranda R.N. (22:13 01/22/2017)] [Electronically signed by Rm Helms MD (08:05 01/23/2017)] [Electronically locked/signed by Scout Miranda R.N. (22:13 01/22/2017)]
--- NOTE | 2017-01-23 08:06 | ED MED RECONCILIATION SUMMARY ---
Patient: TRA MCGRAW Medication Reconciliation Report [facility] VisitID: [id number] [address] [place] [address] 66y, M Registration Date/Time: 01/22/2017 Weight: 89.3 kg Height/Length: 70 in. BMI: 28.2 ALLERGIES: Dilaudid- The patient's Home Medications are listed below: CONTINUE TAKING THE FOLLOWING MEDICATIONS: Coumadin Oral 8 mg, daily Metoprolol Tartrate Oral 25 mg, ER Multivitamins Oral 1 pill, daily Pravastatin Sodium Oral The source(s) of the original Home Medication information: Not obtained. The following Medications were given to the patient in the Emergency Department: IV NS IV Fluids bolus 0, then 1000 mL/hr, administered: 01/22/2017 8:50:00 PM Diltiazem [IVP] IVP 25 mg, administered: 01/22/2017 8:54:00 PM The following Medications were prescribed to the patient: None.
--- NOTE | 2017-01-23 08:06 | ED DISCHARGE INSTRUCTIONS ---
Patient: TRA MCGRAW General Instructions [facility] VisitID: [id number] [place] [address] 66y, M Registration Date/Time: 01/22/2017 Chronic atrial fibrillation. INSTRUCTIONS Avoid stimulants (such as cigarettes, coffee, cold medicines, sinus medicines, street drugs). Warnings: Further evaluation is necessary. GENERAL WARNINGS: Return or contact your physician immediately if your condition worsens or changes unexpectedly, if not improving as expected, or if other problems arise. Your Current Medications: CONTINUE TAKING THE FOLLOWING MEDICATIONS: Coumadin Oral : 8 mg daily. Metoprolol Tartrate Oral : 25 mg, ER. Multivitamins Oral : 1 pill daily. Pravastatin Sodium Oral. Follow-up: Follow up with a pharmacy manager Dr. Andrews. Call for the next available appointment. Understanding of the discharge instructions verbalized by patient and family. ADDITIONAL INFORMATION Arrhythmia Electrical impulses cause the normal heart to beat 60 to 100 times a minute. These impulses come from a natural pacemaker deep inside the heart muscle. Each impulse causes the heart muscle to contract. This causes the blood to flow through the heart and out to the tissues and organs of your body. An arrhythmia is a change from the normal speed or pattern of these electrical impulses. This can cause the heart to beat too fast (tachycardia); or too slow (bradycardia); or in an unsteady pattern (irregular rhythm). Symptoms of arrhythmias Different people experience arrhythmias differently. Sometimes they may not have symptoms, but just notice a change in their pulse. Symptoms can include: Fluttering feeling in the chest Shortness of breath Chest pain or pressure Lightheadedness or dizziness Fainting or nearly fainting Palpitations Tiredness, fatigue, or weakness Causes of arrhythmias Arrhythmias are most often due to heart disease such as: Coronary artery disease (arteriosclerosis) Disease of the heart valves Enlarged heart High blood pressure Heart failure Other causes ofarrhythmia include: Certain medicines (such as asthma inhalers and decongestants) Some herbal supplements Cardiac stimulant drugs (such as cocaine, amphetamine, diet pills, certain decongestant cold medicines, caffeine, and nicotine) Excessive alcohol use Medical conditions such as thyroid disease, anemia, anxiety, and panic disorder Arrythmias can often be prevented. The cause and type of arrhythmia determines the best treatment. Sometimes your doctor may want to monitor your heart rate over a 24-hour period or longer. This can help identify the cause of your arrhythmia and find the best treatment. This can be done with a Holter monitor,a portable EKG recording device attached by wires to your chest. You can carry this with you as you perform your routine activities during the monitoring period. Home care Avoid cardiac stimulants (such as cocaine, amphetamine, diet pills, certain decongestant cold medicines, caffeine, and nicotine). If you smoke, stop smoking. Contact your doctor or a local stop-smoking program for help. Tell your doctor about any prescription, [id number] or herbal medicines you take. These may be affecting your heart rhythm. Follow-up care Follow up with your health care provider or as advised by our staff. If a Holter monitor has been recommended, contact the cardiologistyou have been referred toas soon as you canpick up the device. Other outpatient tests may also be arranged for you at that time. Call 911 This is the fastest and safest way to get to the emergency department. The paramedics can also start treatment on the way to the hospital, if needed. Don'twait until your symptoms are severe to call 911. Other reasons to call 911 besides chest pain include: Chest, shoulder, arm, neck, or back pain Shortness of breath Feeling lightheaded, faint, or dizzy Rapid heart beat Slower than usual heart rate compared to your normal Angina withweakness, dizziness, fainting, heavy sweating, nausea, or vomiting Extreme drowsiness, or confusion Weakness of an arm or leg or one side of the face Difficulty with speech or vision When to seek medical care Remember, things are not always like they are on TV. Sometimes it is not so obvious. You may only feel weak or just "not right." If it is not clear or if you have any doubt, call for advice. Seek help for chest pain, or it feels different from usual, even if your symptoms are mild. Do not drive yourself. Have someone else drive. If no one can drive you, call 911. If your doctor has given you medicines to take when you have symptoms, take them, but do not delay getting help while trying to find them. Do not delay. Fast diagnosis and treatment can prevent or limit the amount of heart damage during a heart attack or stroke. Do not go to your doctor's ofice or a clinic because they will not be able to provide all of the testing or treatment required for this condition. You have been given the following additional information: Arrhythmia, Unspecified (Electronically signed by Rm Helms MD 01/23/2017 8:05)
--- NOTE | 2017-01-23 08:06 | ED MED RECONCILIATION SUMMARY ---
Patient: TRA MCGRAW Medication Reconciliation Report Formerly [facility] VisitID: [id number] [address] [place] [address] 66y, M Registration Date/Time: 01/22/2017 Weight: 89.3 kg Height/Length: 70 in. BMI: 28.2 ALLERGIES: Dilaudid- The patient's Home Medications are listed below: CONTINUE TAKING THE FOLLOWING MEDICATIONS: Coumadin Oral 8 mg, daily Metoprolol Tartrate Oral 25 mg, ER Multivitamins Oral 1 pill, daily Pravastatin Sodium Oral The source(s) of the original Home Medication information: Not obtained. The following Medications were given to the patient in the Emergency Department: IV NS IV Fluids bolus 0, then 1000 mL/hr, administered: 01/22/2017 8:50:00 PM Diltiazem [IVP] IVP 25 mg, administered: 01/22/2017 8:54:00 PM The following Medications were prescribed to the patient: None.
--- NOTE | 2017-01-23 08:06 | ED MAR SUMMARY ---
..... Medication Administration Record [facility] [address] [place] [address] Patient: TRA MCGRAW Visit ID: [id number] 66y, M Weight: 89.3 kg Height/Length: 70 in BMI: 28.2 ALLERGIES: Dilaudid- Start 20:50 01/22/2017 Scout Miranda R.N., Stop 21:50 01/22/2017 Scout Miranda R.N. Medication Administered: IV NS (SALINE), Dose: IV Fluids over 1 hour(s), Rate: 1000 mL/hr, Dispensed: 1000 mL bag, Site: #1 right AC. Medication Ordered: IV NS : initial bolus none -, then 1000 mL/hr for X1 (NOW). Given 20:54 01/22/2017 Scout Miranda R.N. Medication Administered: DILTIAZEM [IVP], Dose: 25 mg IVP over 5 minute(s), Site: #1 right AC. Medication Ordered: Diltiazem IV 25 mg (HIGH ALERT MEDICATION, NOW).
--- NOTE | 2017-01-23 08:06 | ED MAR SUMMARY ---
..... Medication Administration Record [facility] [address] [place] [address] Patient: TRA MCGRAW Visit ID: [id number] 66y, M Weight: 89.3 kg Height/Length: 70 in BMI: 28.2 ALLERGIES: Dilaudid- Start 20:50 01/22/2017 Scout Miranda R.N., Stop 21:50 01/22/2017 Scout Miranda R.N. Medication Administered: IV NS (SALINE), Dose: IV Fluids over 1 hour(s), Rate: 1000 mL/hr, Dispensed: 1000 mL bag, Site: #1 right AC. Medication Ordered: IV NS : initial bolus none -, then 1000 mL/hr for X1 (NOW). Given 20:54 01/22/2017 Scout Miranda R.N. Medication Administered: DILTIAZEM [IVP], Dose: 25 mg IVP over 5 minute(s), Site: #1 right AC. Medication Ordered: Diltiazem IV 25 mg (HIGH ALERT MEDICATION, NOW).
== END 2017-01-22 22:12 | disposition home or self-care (01) ==
LOC: ED SRH 20:11
DX: I48.2 Chronic atrial fibrillation (principal); I10 Essential (primary) hypertension; Z79.01 Long term (current) use of anticoagulants; Z86.73 Personal history of transient ischemic attack (TIA), and cerebral infarction without residual deficits; Z79.899 Other long term (current) drug therapy; Z88.5 Allergy status to narcotic agent; Z72.0 Tobacco use
CPT/HCPCS: 90004; 90100; 90616; 91320; 91556; 92610; 92720; 92760; 92761; 92762; 92763; 92764; 92765; 92766; 92767; 94001; 94060; 95059